=== PATIENT | male | born 1970 | race Caucasian/White ===

== ENCOUNTER 2022-01-08 16:45 | Emergency (ER) | payer SELFPAY ==
[~2022-01-08] VITALS: Ht 167.6 cm; Wt 114.0 kg
[2022-01-08 18:48] VITALS: BP 127/86
== END 2022-01-08 18:50 | disposition home or self-care (01) ==
LOC: ER 16:45
DX: H91.92 Unspecified hearing loss, left ear (principal); K42.9 Umbilical hernia without obstruction or gangrene
CPT/HCPCS: 74018; 99283

== ENCOUNTER 2023-01-16 20:01 | Emergency (ER) | payer OTHER ==
[~2023-01-16] VITALS: Ht 170.2 cm; Wt 100.0 kg
[2023-01-16] MEDS ORDERED: IBUPROFEN 400MG TABLET PO ONE (22:00)
[2023-01-16] MEDS ORDERED: ACETAMINOPHEN 325MG TABLET PO ONE (22:00)
[2023-01-16 23:45] VITALS: BP 101/52
[2023-01-16] MEDS ORDERED: IBUP-2028 MT (23:48)
[2023-01-16] MEDS ORDERED: ACET-2708 MT (23:48)
== END 2023-01-17 00:01 | disposition home or self-care (01) ==
LOC: ER 20:01
DX: M25.511 Pain in right shoulder (principal); M54.2 Cervicalgia; R42 Dizziness and giddiness
CPT/HCPCS: 73030; 73562; 99284